=== PATIENT | female | born 1980 | race Two or more races ===

== ENCOUNTER → 2025-01-01 | Outpatient (BNVA) | payer MEDICAID, SELFPAY | END | disposition home or self-care (01) | PROVIDERS: PCP Nurse Practitioner Family; Referring Provider Nurse Practitioner Family; Visit Provider Nurse Practitioner Family | DX: G43.009 Migraine without aura, not intractable, without status migrainosus (principal) | CPT/HCPCS: 81025; 96372; 99214; J1885 ==

== ENCOUNTER → 2025-01-09 | Outpatient (BNVA) | payer MEDICAID, SELFPAY | END | disposition home or self-care (01) | PROVIDERS: PCP Nurse Practitioner Family; Referring Provider Nurse Practitioner Family; Visit Provider Nurse Practitioner Family | DX: I10 Essential (primary) hypertension (principal); E78.5 Hyperlipidemia, unspecified; E11.9 Type 2 diabetes mellitus without complications; E55.9 Vitamin D deficiency, unspecified | CPT/HCPCS: 99212; G0463 ==

== ENCOUNTER → 2025-01-10 | Outpatient (BNVA) | payer MEDICAID, SELFPAY | END | disposition home or self-care (01) | PROVIDERS: PCP Nurse Practitioner Family; Referring Provider Nurse Practitioner Family; Visit Provider Nurse Practitioner Family | DX: G43.009 Migraine without aura, not intractable, without status migrainosus (principal) | CPT/HCPCS: 99213 ==

== ENCOUNTER → 2025-01-17 | Outpatient (BNVA) | payer MEDICAID, SELFPAY | END | disposition home or self-care (01) | PROVIDERS: PCP Nurse Practitioner Family; Referring Provider Nurse Practitioner Family; Visit Provider Nurse Practitioner Family | DX: G43.009 Migraine without aura, not intractable, without status migrainosus (principal) | CPT/HCPCS: 99213 ==

== ENCOUNTER → 2025-01-30 | Outpatient (BNVA) | payer MEDICAID, SELFPAY | END | disposition home or self-care (01) | PROVIDERS: PCP Nurse Practitioner Family; Referring Provider Nurse Practitioner Family; Visit Provider Nurse Practitioner Family | DX: G47.00 Insomnia, unspecified (principal); G43.009 Migraine without aura, not intractable, without status migrainosus; Z76.89 Persons encountering health services in other specified circumstances; Z71.2 Person consulting for explanation of examination or test findings; E55.9 Vitamin D deficiency, unspecified; E78.5 Hyperlipidemia, unspecified; E11.9 Type 2 diabetes mellitus without complications; Z12.31 Encounter for screening mammogram for malignant neoplasm of breast | CPT/HCPCS: 99214 ==

== ENCOUNTER → 2025-02-22 | Outpatient (BNVA) | payer MEDICAID, SELFPAY | END | disposition home or self-care (01) | PROVIDERS: PCP Nurse Practitioner Family; Referring Provider Nurse Practitioner Family; Visit Provider Nurse Practitioner Family | DX: E11.9 Type 2 diabetes mellitus without complications (principal); K59.00 Constipation, unspecified | CPT/HCPCS: 99212; G0463 ==

== ENCOUNTER → 2025-06-12 | Outpatient (BNVA) | payer MEDICAID, SELFPAY | END | disposition home or self-care (01) | PROVIDERS: PCP Nurse Practitioner Family; Referring Provider Nurse Practitioner Family; Visit Provider Nurse Practitioner Family | DX: E78.5 Hyperlipidemia, unspecified (principal); I10 Essential (primary) hypertension; E11.9 Type 2 diabetes mellitus without complications | CPT/HCPCS: 99212; G0463 ==

== ENCOUNTER → 2025-07-12 | Outpatient (BNVA) | payer MEDICAID, SELFPAY | END | disposition home or self-care (01) | PROVIDERS: PCP Nurse Practitioner Family; Referring Provider Nurse Practitioner Family; Visit Provider Nurse Practitioner Family | DX: Z00.00 Encounter for general adult medical examination without abnormal findings (principal) ==

== ENCOUNTER 2025-09-11 05:05 | Emergency (ER) | payer MEDICAID, SELFPAY ==
[2025-09-11 05:05] VITALS: BP 131/84; PULSE 84; TEMP 36.9; O2SAT 98; BMI 38.9
--- NOTE | 2025-09-11 05:26 | PD.EDRME ---
Rapid Medical Screening Exam RME Arrival date/time: 09/11/25 05:05 Chief Complaint: Headache Vital signs: Vital Signs Temperature 98.5 F 09/11/25 05:05 Pulse Rate 84 09/11/25 05:05 Blood Pressure 131/84 H 09/11/25 05:05 Pulse Oximetry (%) 98 09/11/25 05:05 Oxygen Delivery Method Room Air 09/11/25 05:05 E Narrative: LESLIE, nausea/vomiting started this morning. Hx of migraines. Also c/o generalized low back pain. Exam: well-appearing, NAD Clinical Impression: headache, low back pain
[2025-09-11 05:39] LABS: Collection Type, Urine Clean Catch
[2025-09-11] MEDS: ONDANSETRON ODT 4 MG TABRAP PO (05:42)
[2025-09-11] MEDS: KETOROLAC INJ 30 MG/ML VIAL IM (05:42)
[2025-09-11 05:47] LABS: Bacteria,Urine Rare; Bilirubin,Urine Negative (Negative); Blood,Urine Negative (Negative); Clarity,Urine Turbid (Clear/Hazy); Color,Urine Yellow (Lt Yel-Yel); Glucose, Urine Negative (Negative); Ketones,Urine Negative (Negative); Leukocyte Esterase,Urine Negative (Negative); Nitrite,Urine Negative (Negative); PH,Urine 6.0 (5.0-7.0); Protein,Urine 1+ (Neg - Trace); RBC,Urine 2 /hpf (0-3); Specific Gravity,Urine 1.028 (1.001-1.035); Squamous Epithelial Cell,Urine 4 /hpf (0-5); Urobilinogen,Urine Negative mg/dL (0.0-1.0); WBC,Urine 2 /hpf (0-5)
[2025-09-11 05:50] LABS: HCG Qualitative,Urine Negative
[2025-09-11 05:54] LABS: Basophils # (Auto) 0.1 Thou/mm3 (0.0-0.2); Basophils % (Auto) 0 % (0-2.5); Eosinophils # (Auto) 0.1 Thou/mm3 (0.0-0.5); Eosinophils % (Auto) 1 % (0-10); Hematocrit 40.4 % (36.0-46.0); Hemoglobin 12.3 g/dL (12.0-16.0); Immature Granulocytes Auto 0.05 Thou/mm3 (0.00-0.00); Lymphocytes # (Auto) 1.8 Thou/mm3 (1.0-4.8); Lymphocytes % (Auto) 16 % (10-50); Mean Corpuscular HGB Conc 30.4 g/dl (31.0-37.0); Mean Corpuscular Hemoglobin 26.7 pg (25.0-35.0); Mean Corpuscular Volume 88 fL (80-100); Monocytes # (Auto) 0.7 Thou/mm3 (0.0-0.8); Monocytes % (Auto) 6 % (0-12); Neutrophils # (Auto) 8.4 Thou/mm3 (1.8-7.7); Neutrophils % (Auto) 76 % (37-80); Nucleated Red Blood Cell # 0.00 Thou/mm3 (0.00-0.00); Nucleated Red Blood Cell % 0 /100 WBC (0); Platelet Count 291 Thou/mm3 (140-440); RDW Standard Deviation 47.6 fL (36.4-46.3); Red Blood Count 4.60 Miln/mm3 (4.00-5.20); White Blood Count 11.1 Thou/mm3 (3.6-11.0)
[2025-09-11 06:04] LABS: Beta Hydroxybutyrate 0.1 mmol/L (<0.6)
[2025-09-11 06:12] LABS: Alanine Aminotransferase 14 U/L (10-49); Albumin, Serum 4.5 gm/dL (3.5-5.0); Albumin/Globulin Ratio 1.6 (1.2-2.2); Alkaline Phosphatase 104 U/L (46-116); Anion Gap 8 (7-16); Aspartate Amino Transferase 13 U/L (0-34); BUN/Creatinine Ratio 11 Ratio (12-20); Bilirubin,Total 0.3 mg/dL (0.3-1.2); Blood Urea Nitrogen 8 mg/dL (9-23); Calcium 9.4 mg/dL (8.3-10.6); Calcium (Corrected) 9.4 mg/dL (8.5-10.1); Carbon Dioxide 29.7 mMol/L (20.0-31.0); Chloride 103 mMol/L (98-107); Creatinine (Component) 0.7 mg/dL (0.6-1.3); Estimated Creatinine Clearance 115.5 mL/min (>60); Globulin 2.9 gm/dL (2.3-3.5); Glucose 115 mg/dL (74-106); Lipase 41 U/L (12-53); Osmolality,Calculated 280 (275-295); Potassium 3.9 mMol/L (3.4-5.1); Sodium 141 mMol/L (136-145); Total Protein 7.4 gm/dL (5.7-8.2); eGFR > 60 See Note
--- NOTE | 2025-09-11 06:23 | EDNOTE_ITS ---
<Statement entered by Lucila Sethi MD - 09/12/25 09:36> As co-signing physician, I was present and available for consult prn. I concur with the plan and care as documented by the midlevel provider. ED General RME/HPI General Chief complaint: Headache Stated complaint: HEADACHE/BACK PAIN Time Seen by Provider: 09/11/25 06:17 Arrival date/time: 09/11/25 05:05 44-year-old female history of migraines presents to department today for complaint of headache patient was reports lower back pain patient reports intermittent back pain for last couple of months patient reports she has seen her primary care doctor. Patient reports no fever nausea vomiting no saddle anesthesia no loss of bowel or bladder no abnormal neurological findings Limitations: no limitations RME / HPI RME / HPI narrative: LESLIE, nausea/vomiting started this morning. Hx of migraines. Also c/o generalized low back pain. Exam: well-appearing, NAD Impression: headache, low back pain Related Data Previous Rx's ?Medication ?Instructions ?Recorded albuterol sulfate 90 mcg/actuation 2 puff inhalation Q 6H PRN 12/19/24 aerosol inhaler shortness of breath or wheez ing #6.7 grams omeprazole 20 mg capsule,delayed 20 mg PO QDAY #90 cap s 01/09/25 release galcanezumab-gnlm 120 mg/mL 120 mg subcut QMONTH 30 da ys #1 mL 01/30/25 subcutaneous pen injector (Emgality Pen) blood sugar diagnostic (Blood #50 ea 02/22/25 Glucose Test strips) lancets 21 gauge (Comfort EZ #100 ea 02/22/25 Lancets) linaclotide 290 mcg capsule 290 mcg PO QAM #90 caps (Linzess) rimegepant 75 mg disintegrating 75 mg PO Q OTHER DAY P RN migraine 05/01/25 tablet (Nurtec ODT) headache #30 tabs atorvastatin 10 mg tablet 10 mg PO QPM #90 tabs lisinopril 20 mg tablet 20 mg PO QDAY 0 days #90 tab s 06/12/25 semaglutide 7 mg tablet (Rybelsus) 7 mg PO QDAY #90 ta bs 06/12/25 cyclobenzaprine 10 mg tablet 10 mg PO TID PRN muscle s pasm 10 09/11/25 days #30 tab-caps hydrocodone 5 mg-acetaminophen 325 1 tab PO BID PRN pa in #10 tabs 09/11/25 mg tablet Allergies Allergy/AdvReac Type Severity Reaction Status Date / Time ibuprofen Allergy Verified 06/12/25 13:40 simvastatin Allergy Verified 06/12/25 13:40 Review of Systems Review of Systems Systems Reviewed: All systems reviewed, normal except as documented Constitutional Constitutional: Reports system reviewed and no additional complaints, except as documented, Denies fever(s) and Reports headache(s) Eyes Eyes: Reports system reviewed and no additional complaints, except as documented and Denies blurry vision ENT Ears, Nose, Mouth, and Throat: Reports system reviewed and no additional complaints, except as documented, Reports headache(s), Denies nasal congestion and Denies nasal discharge Cardiovascular Cardiovascular: Reports system reviewed and no additional complaints, except as documented, Denies chest pain and Denies dyspnea Respiratory Respiratory: Reports system reviewed and no additional complaints, except as documented, Denies chest congestion, Denies cough and Denies dyspnea Gastrointestinal Gastrointestinal: Reports system reviewed and no additional complaints, except as documented and Denies abdominal pain Musculoskeletal Musculoskeletal: Reports system reviewed and no additional complaints, except as documented and Reports back pain Integumentary/Breasts Skin/Breast: Reports system reviewed and no additional complaints, except as documented and Denies rash Neurologic Neurologic: Reports system reviewed and no additional complaints, except as documented, Reports as per HPI and Reports headache(s) Past Medical History Past Medical History CARDIAC: Positive Cardiac Disorders, Hypercholesterolemia and Hypertension; Negative Congestive Heart Failure RESPIRATORY: Positive Asthma; Negative Chronic Obstructive Pulmonary Disease (COPD) GENITOURINARY: Negative Renal Disease REPRODUCTIVE: Positive Previous Pregnancies ENDOCRINE: Positive Diabetes Mellitus Type 2; Negative Diabetes Mellitus Type 1 HEMATOLOGIC: Negative Sickle Cell Disease Surgical History SURGICAL: Positive Abdominal Surgery Social History SMOKING STATUS: Never smoker SECOND HAND EXPOSURE: No ED Exam General Limitations: Present no limitations General appearance: Present alert and in no apparent distress Head Head exam: Present atraumatic, normocephalic and normal inspection Eye Eye exam: Present normal appearance, PERRL and EOMI; Absent conjunctival injection ENT ENT exam: Present normal exam, normal oropharynx and mucous membranes moist Neck Neck exam: Present normal inspection, full ROM and trachea midline Chest Chest inspection: Present normal inspection and symmetric chest wall rise Respiratory Respiratory exam: Present normal lung sounds bilaterally; Absent respiratory distress Cardiovascular Cardiovascular exam: Present regular rate, normal rhythm and normal heart sounds Abdominal Exam Abdominal exam: Present soft and normal bowel sounds; Absent distention, tenderness, guarding, rebound or rigidity Extremities Exam Extremities exam: Present normal inspection and full ROM; Absent tenderness Back Exam Back exam: Present normal inspection and full ROM Neurological Exam Neurological exam: Present alert, oriented X3, CN II-XII intact, normal gait and reflexes normal; Absent motor sensory deficit Psychiatric Psychiatric exam: Present normal affect and normal mood Skin Skin exam: Present warm, dry, intact and normal color Course Quality Measures none Orders Category Date Time Status Beta Hydroxybutyrate Stat Lab 09/11/25 05:47 Completed CBC Stat Lab 09/11/25 05:47 Completed CMP [Comprehensive Metabolic Panel] Stat Lab 09/11/25 05:47 Completed HCG Qualitative,Urine Stat Lab 09/11/25 05:34 Completed Hemoglobin A1C [Glycohemoglobin w (eAG)] Stat Lab 09/11/25 05:47 Completed Lipase Stat Lab 09/11/25 05:47 Completed UA [Urinalysis] Stat Lab 09/11/25 05:34 Completed Ketorolac Inj [Toradol Inj] Med 09/11/25 05:31 Discontinued 30 mg IM X1 ONE Ondansetron Odt [Zofran Odt] Med 09/11/25 05:31 Discontinued 4 mg PO X1 ONE Vital Signs Vital signs: Vital Signs Temperature 98.5 F 09/11/25 05:05 Pulse Rate 84 09/11/25 05:05 Blood Pressure 131/84 H 09/11/25 05:05 Pulse Oximetry (%) 98 09/11/25 05:05 Oxygen Delivery Method Room Air 09/11/25 05:05 O2 saturation 98% room air WNL Discharge Plan Plan Patient Disposition: HOME (Self Care) Discharge Disposition comment: Stable Prescriptions/Referrals Prescriptions/Med Rec: New cyclobenzaprine 10 mg tablet 10 mg PO TID PRN (Reason: muscle spasm) 10 Days Qty: 30 0RF hydrocodone-acetaminophen 5-325 mg tablet 1 tab PO BID MDD 10 PRN (Reason: pain) Qty: 10 0RF No Action omeprazole 20 mg capsule,delayed release(DR/EC) 20 mg PO QDAY Qty: 90 1RF Emgality Pen 120 mg/mL pen injector 120 mg subcut QMONTH 30 Days Qty: 1 5RF (DME) Blood Glucose Test Strip See Rx Instructions .Route Qty: 50 5RF Rx Instructions: check blood sugar once a day (DME) lancets [Comfort EZ Lancets] 21 gauge misc See Rx Instructions .Route Qty: 100 2RF Rx Instructions: Check blood sugar once a day Linzess 290 mcg capsule 290 mcg PO QAM Qty: 90 0RF Rybelsus 7 mg tablet 7 mg PO QDAY Qty: 90 0RF atorvastatin 10 mg tablet 10 mg PO QPM Qty: 90 0RF lisinopril 20 mg tablet 20 mg PO QDAY Qty: 90 1RF albuterol sulfate 90 mcg/actuation HFA aerosol inhaler 2 puff inhalation Q6H PRN (Reason: shortness of breath or wheezing) Qty: 6.7 3RF Nurtec ODT 75 mg tablet,disintegrating 75 mg PO Q OTHER DAY PRN (Reason: migraine headache) Qty: 30 0RF Referrals: Temporary Provider,ED [Physician, Emergency Medicine] - In 1 week Problem List Clinical Impression: Migraine, Acute on chronic back pain Clinical Impression: (Ruled Out): Hemorrhage in early Patient/Caregiver Discharge Instructions Education Materials: Back Safety: Standing Additional Instructions: Please follow up with your primary care doctor in the next 24-48hrs for any worsening symptoms return here immediately Please discuss possibility of getting an MRI from your PCP if symptoms persist Print Language: [place] Leone[place] Stand Alone Forms: Connectivity Award Info., Patient Portal Info Letter PA/EMERGENCY MEDICAL DISPATCHER Supervising Physician PA/EMERGENCY MEDICAL DISPATCHER Supervising Physician: Dr. Sethi MDM Narrative MDM hospital course (for use when minimal MDM required): 44-year-old female history of migraines presents to department today for complaint of headache patient was reports lower back pain patient reports intermittent back pain for last couple of months patient reports she has seen her primary care doctor. Patient reports no fever nausea vomiting no saddle anesthesia no loss of bowel or bladder no abnormal neurological findings On exam patient well-appearing patient does not appear ill or toxic no distress Lab work reviewed no acute emergent findings noted On exam patient has no abnormal neurological findings patient walks with steady gait. Patient reports this is not the worst headache of her life Patient discharged home in no distress to follow-up with primary care doctor in the next 24 to 48 hours and for any worsening symptoms to return to the ER immediately Clinical Information Provided by: patient Medical Records reviewed [facility] Meds/Rx considered, not ordered describe: Given Labs/Rad/Tests considered, not ordered Describe: Obtained Chronic Illness/Social Conditions which may negatively complicate care or outcome(s)-explain: None or not applicable EKG EKG not done Labs Lab(s) Interpretation(s): Reviewed by me Imaging Imaging interpretation: none Medication Administration(s) Medication Administration History Discontinued Medications Ketorolac Tromethamine (Ketorolac Inj 30 Mg/Ml Vial) 30 mg IM X1 ONE Stop: 09/11/25 05:32 Last Admin: 09/11/25 05:42 Dose: 30 mg Documented By: DT Ondansetron HCl (Ondansetron Odt 4 Mg Tabrap) 4 mg PO X1 ONE; Protocol Stop: 09/11/25 05:32 Last Admin: 09/11/25 05:42 Dose: 4 mg Documented By: DT Given Diagnosis Differential Diagnosis ED Complaint MDM: Lumbar radiculopathy, lumbar strain, headache, migraine, tension headache
[2025-09-11 07:05] LABS: Glucose Estimated Average 128 mg/dL (80-131); Hemoglobin A1C 6.1 % Hgb (4.8-6.0)
== END 2025-09-11 06:31 | disposition home or self-care (01) ==
LOC: SERX 06:39
PROVIDERS: Physician Assistant; Emergency Provider Emergency Medicine; PCP Nurse Practitioner Family
DX: G43.909 Migraine, unspecified, not intractable, without status migrainosus (principal); G89.29 Other chronic pain
CPT/HCPCS: 36415; 80053; 81001; 81025; 82010; 83036; 83690; 85025; 96372; 99282; J1885; Q0162